=== PATIENT | male | born 1985 | race African-American/Black ===

== ENCOUNTER 2017-02-13 17:09 | Emergency (ER) | payer BC ==
[~2017-02-13] VITALS: Ht 188 cm; Wt 94.0 kg
[2017-02-13 17:18] VITALS: BP 128/82
[2017-02-13] MEDS ORDERED: IBUPROFEN 600MG TABLET PO STA (20:38)
== END 2017-02-13 22:39 | disposition home or self-care (01) ==
LOC: ER 17:09
DX: S20.212A Contusion of left front wall of thorax, initial encounter (principal); V89.2XXA Person injured in unspecified motor-vehicle accident, traffic, initial encounter; Y93.89 Activity, other specified; Y92.89 Other specified places as the place of occurrence of the external cause; Y99.8 Other external cause status
CPT/HCPCS: 71101; 99284; Z7610; 99283

== ENCOUNTER 2018-08-04 07:45 | Emergency (ER) | payer SELFPAY ==
[~2018-08-04] VITALS: Ht 180.3 cm; Wt 95.0 kg
[2018-08-04 08:05] VITALS: BP 128/75
== END 2018-08-04 08:40 | disposition home or self-care (01) ==
LOC: ER 08:34
DX: L03.211 Cellulitis of face (principal); R03.0 Elevated blood-pressure reading, without diagnosis of hypertension
CPT/HCPCS: 99283

== ENCOUNTER 2019-07-17 18:20 | Emergency (ER) | payer SELFPAY ==
[~2019-07-17] VITALS: Ht 182.9 cm; Wt 93.0 kg
[2019-07-17] MEDS ORDERED: ONDANSETRON HCL 4MG/2ML INJ IV STA (22:28)
[2019-07-17] MEDS ORDERED: SODIUM CHLORIDE 0.9% 1,000 ML IV ONE (22:28)
[2019-07-17 23:49] LABS: BASOPHILS % 0.8 % (0.0-2.0); HEMATOCRIT. 43.2 % (42.0-52.0); HEMOGLOBIN. 14.4 g/dL (14.0-18.0); MEAN CORPUSCULAR HEMOGLOBIN 28.9 pg (28.0-32.0); MEAN CORPUSCULAR VOLUME 86.7 fL (80.0-94.0); MEAN PLATELET VOLUME 8.3 fl (7.4-10.4); MONOCYTES % 14.1 % (2.0-8.0); NEUTROPHILS % 65.1 % (40.0-76.0); PLATELET 179 x1000/uL (130-400); RED BLOOD CELL COUNT 4.99 mill/uL (4.7-6.1); RED CELL DISTRIBUTION WIDTH 14.1 % (11.6-14.6)
[2019-07-17 23:52] LABS: CHLORIDE 106 mEq/L (98-107)
[2019-07-18 01:16] VITALS: BP 133/79
== END 2019-07-18 01:58 | disposition home or self-care (01) ==
LOC: ER 18:20
DX: J06.9 Acute upper respiratory infection, unspecified (principal); R50.9 Fever, unspecified; R11.2 Nausea with vomiting, unspecified; R05 Cough; F12.10 Cannabis abuse, uncomplicated; I49.9 Cardiac arrhythmia, unspecified
CPT/HCPCS: 36415; 71045; 80053; 83880; 84484; 85025; 87804; 93005; 96361; 96374; 99284; J2405; J7030; Z7610